=== PATIENT | female | born 1960 | race Hispanic/Latino ===

== ENCOUNTER 2024-02-16 20:20 | Emergency (ER) | payer OTHER, SELFPAY ==
[2024-02-16 20:23] VITALS: BP 147/113
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
== END 2024-02-16 23:04 | disposition home or self-care (01) ==
LOC: EMR 20:20
PROVIDERS: EMERGENCY PHYSICIAN Emergency Medicine
DX: S46.912A Strain of unspecified muscle, fascia and tendon at shoulder and upper arm level, left arm, initial encounter (principal); M25.561 Pain in right knee; M25.562 Pain in left knee; M79.652 Pain in left thigh; R07.89 Other chest pain; M54.2 Cervicalgia; V49.40XA Driver injured in collision with unspecified motor vehicles in traffic accident, initial encounter; Y92.481 Parking lot as the place of occurrence of the external cause; R03.0 Elevated blood-pressure reading, without diagnosis of hypertension; G43.909 Migraine, unspecified, not intractable, without status migrainosus; J45.909 Unspecified asthma, uncomplicated; Z87.891 Personal history of nicotine dependence; Z90.49 Acquired absence of other specified parts of digestive tract
CPT/HCPCS: 99284; 70450; 71046; 72125; 72131; 73030; 93005

== ENCOUNTER 2024-04-16 22:44 | Emergency (ER) | payer OTHER, SELFPAY ==
[2024-04-16 22:58] VITALS: BP 120/88
[2024-04-17 01:00] VITALS: BP 136/79; BMI 32.4
[2024-04-17] MEDS: DILAUDID 1 MG IM (01:10)
[2024-04-17] MEDS: VALIUM 5 MG PO (01:10)
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
[2024-04-17 02:35] VITALS: BP 81/56
[2024-04-17] MEDS: TORADOL 30 MG IV (02:52)
[2024-04-17] MEDS: DILAUDID 1 MG IV (02:54)
[2024-04-17 03:00] VITALS: BP 108/59
[2024-04-17 03:03] LABS: % Basophils 0.5 % (0-2); % Eosinophils 1.1 % (0-6); % Immature Granulocytes 0.3 % (0-0.5); % Lymphocytes 26.3 % (20.5-51.1); % Monocytes 8.6 % (1.7-9.3); % Neutrophils 63.2 % (42.2-75.2); Absolute Eosinophils 0.1 10^3/uL (0-0.7); Absolute Monocytes 0.6 10^3/uL (0.1-0.6); Absolute Neutrophils 4.7 10^3/uL (1.4-6.5); Hematocrit 39.1 % (37.0-47.0); Hemoglobin 13.3 g/dL (12.0-16.0); Mean Corpuscular Hgb 32.3 pg (27.0-31.0); Mean Corpuscular Volume 94.9 fL (81.0-99.0); Mean Platelet Volume 8.6 fL (7.4-10.4); Nucleated Red Blood Cells % 0 %; Platelet Count 251 10^3/uL (130-400); Red Blood Cell Count 4.12 10^6/uL (4.20-5.40); Red Cell Dist. Width 12.3 % (11.5-14.5); White Blood Cell Count 7.4 10^3/uL (4.8-10.8)
[2024-04-17 03:16] LABS: Urine Albumin Negative (Neg - Trace); Urine Bilirubin 1+ (Negative); Urine Character Clear (Clear); Urine Color Yellow; Urine Glucose Negative (Negative); Urine Ketone Trace (Negative); Urine Leukocyte Negative (Negative); Urine Nitrite Negative (Negative); Urine Occult Blood Negative (Negative); Urine Urobilinogen Negative (Neg - 1+)
[2024-04-17 03:19] LABS: ALT (SGPT) 46 U/L (0-35); AST (SGOT) 34 U/L (14-36); Albumin 4.3 g/dl (3.5-5.0); Alkaline Phosphatase 111 U/L (38-126); Blood Urea Nitrogen 24 mg/dl (7-17); Carbon Dioxide 24 mmol/L (22-30); Chloride 104 mmol/L (98-107); Estimated Creatinine Clearance 70 ml/min; Glucose 93 mg/dl (70-99); Potassium 4.6 mmol/L (3.5-5.1); Sodium 137 mmol/L (135-145); Total Bilirubin 0.3 mg/dl (0.2-1.3); Total Protein 7.2 g/dl (6.3-8.2); eGFR > 60.00
== END 2024-04-17 06:41 | disposition home or self-care (01) ==
LOC: EMR 22:44
PROVIDERS: EMERGENCY PHYSICIAN Emergency Medicine
DX: M54.16 Radiculopathy, lumbar region (principal); J44.89 Other specified chronic obstructive pulmonary disease; G43.909 Migraine, unspecified, not intractable, without status migrainosus; Z87.442 Personal history of urinary calculi; Z87.891 Personal history of nicotine dependence; Z88.1 Allergy status to other antibiotic agents; Z88.5 Allergy status to narcotic agent
CPT/HCPCS: 99284; 96374; 96375; 96372; 72100; 74176; 80053; 81003; 85025

== ENCOUNTER 2025-05-11 19:47 | Emergency (ER) | payer OTHER, SELFPAY ==
[2025-05-11 19:53] VITALS: BP 134/93
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
[2025-05-11 21:23] VITALS: BMI 31.7
[2025-05-11 21:24] VITALS: BP 136/90
[2025-05-11 23:45] VITALS: BP 128/91
== END 2025-05-11 23:46 | disposition home or self-care (01) ==
LOC: EMR 19:47
PROVIDERS: EMERGENCY PHYSICIAN Emergency Medicine
DX: M54.2 Cervicalgia (principal); V43.52XA Car driver injured in collision with other type car in traffic accident, initial encounter; Y92.410 Unspecified street and highway as the place of occurrence of the external cause; J44.89 Other specified chronic obstructive pulmonary disease; G43.909 Migraine, unspecified, not intractable, without status migrainosus; Z90.49 Acquired absence of other specified parts of digestive tract; Z87.891 Personal history of nicotine dependence; Z88.1 Allergy status to other antibiotic agents
CPT/HCPCS: 99284; 72125